=== PATIENT | male | born 1970 | race Caucasian/White ===

== ENCOUNTER 2017-06-27 09:48 | Day surgery (SDC) | payer MEDICAID ==
[~2017-06-27] VITALS: Ht 177.8 cm; Wt 75.6 kg
[~2017-06-27 09:48] MED LIST: NONE PER PT
[2017-06-27 10:02] VITALS: BP 108/71
[2017-06-27] MEDS ORDERED: FENTANYL PF 100 MCG/2ML ONE (10:05)
[2017-06-27] MEDS ORDERED: MIDAZOLAM 1 MG/ML, 2ML ONE ×2 (10:05→12:29)
[2017-06-27] MEDS ORDERED: LACTATED RINGERS 1,000 ML IV SCH (10:05)
[2017-06-27] MEDS ORDERED: LIDOCAINE-MPF 1%, 2ML ONE (10:06)
[2017-06-27] MEDS ORDERED: BUPIVACAINE/PF 0.5% ONE (10:28)
[2017-06-27] MEDS ORDERED: METOCLOPRAMIDE 10MG TABLET ONE (10:28)
[2017-06-27] MEDS ORDERED: ACETAMINOPHEN 500 MG TABLET ONE (10:28)
[2017-06-27] MEDS ORDERED: ONDANSETRON ODT 8 MG ONE (10:28)
[2017-06-27] MEDS ORDERED: TAMSULOSIN 0.4 MG CAP.ER.24H ONE (10:28)
[2017-06-27] MEDS ORDERED: GABAPENTIN 300 MG CAPSULE ONE (10:29)
[2017-06-27] MEDS ORDERED: GABAPENTIN 300 MG CAPSULE PO ONE (10:30)
[2017-06-27] MEDS ORDERED: LIDOCAINE-MPF 1%, 2ML INFIL ONE (10:30)
[2017-06-27] MEDS ORDERED: METOCLOPRAMIDE 10MG TABLET PO ONE (10:30)
[2017-06-27] MEDS ORDERED: TAMSULOSIN 0.4 MG CAP.ER.24H PO ONE (10:30)
[2017-06-27] MEDS ORDERED: ONDANSETRON ODT 8 MG PO ONE (10:30)
[2017-06-27] MEDS ORDERED: FAMOTIDINE 20 MG TABLET PO ONE (10:30)
[2017-06-27] MEDS ORDERED: ACETAMINOPHEN 500 MG TABLET PO ONE (10:30)
[2017-06-27] MEDS ORDERED: FENTANYL PF 250 MCG/5ML ONE (12:29)
[2017-06-27] MEDS ORDERED: PROPOFOL 10 MG/ML, 20ML ONE (12:30)
[2017-06-27] MEDS ORDERED: ROCURONIUM 10MG/ML,5ML ONE (12:31)
[2017-06-27] MEDS ORDERED: WATER-INJECTION,STERILE 10 ML IV ONE (12:32)
[2017-06-27] MEDS ORDERED: CEFAZOLIN 1,000 MG ONE ×2 (12:32)
[2017-06-27] MEDS ORDERED: NEOSTIGMINE 1 MG/ML, 10ML ONE (12:32)
[2017-06-27] MEDS ORDERED: GLYCOPYRROLATE 0.4 MG/2 ML, 2ML ONE (12:32)
[2017-06-27] MEDS ORDERED: ACETAMINOPHEN 325 MG TABLET PO PRN (13:00)
[2017-06-27] MEDS ORDERED: HYDROmorphone 1 MG/ML, 1ML IV PRN (13:00)
[2017-06-27] MEDS ORDERED: hydrALAzine 20 MG/ML, 1ML IV PRN (13:00)
[2017-06-27] MEDS ORDERED: FENTANYL PF 100 MCG/2ML IV PRN (13:00)
[2017-06-27] MEDS ORDERED: ONDANSETRON 2MG/ML, 2ML IVPush PRN (13:00)
[2017-06-27] MEDS ORDERED: PROMETHAZINE 25 MG/ML, 1ML IV PRN (13:00)
[2017-06-27] MEDS ORDERED: PROMETHAZINE 12.5 MG SUPP PR PRN (13:00)
[2017-06-27] MEDS ORDERED: morphine SULFATE 10 MG/ML, 1ML IV PRN (13:00)
[2017-06-27] MEDS ORDERED: LABETALOL 5MG/ML, 20ML IV PRN (13:00)
[2017-06-27] MEDS ORDERED: OXYcodone 5 MG/5 ML ORAL.SOL UDC PO PRN (13:00)
[2017-06-27] MEDS ORDERED: MEPERIDINE/PF 25MG/0.5ML IVPush PRN (13:00)
[2017-06-27] MEDS ORDERED: ACETAMINOPHEN 650 MG/20.3 ML UDC ONE (15:06)
[2017-06-27] MEDS ORDERED: OXYcodone 5 MG/5 ML ORAL.SOL UDC ONE (15:06)
== END 2017-06-27 16:25 | disposition home or self-care (01) ==
LOC: OUT 09:48
PROVIDERS: ATTEND Student in an Organized Health Care Education/Training Program
DX: N43.3 Hydrocele, unspecified (principal); Z72.89 Other problems related to lifestyle; Z87.891 Personal history of nicotine dependence
CPT/HCPCS: 55040; 88302; 93005; J0690; J2250; J2704; J2710; J3010; J3490; J7120; Q0162